=== PATIENT | female | born 1995 | race Caucasian/White ===

== ENCOUNTER 2022-08-09 21:16 | Emergency (ER) | payer OTHER, SELFPAY ==
[2022-08-09 21:24] VITALS: BP 132/96; PULSE 102; RESP 20; TEMP 36.7; O2SAT 100
--- NOTE | 2022-08-09 21:30 | ED.DENTAL ---
HPI - Dental/Oral General Chief complaint: Dental/Oral Stated complaint: mouth pain; swelling on roof of mouth Time Seen by Provider: 08/09/22 21:17 History of Present Illness HPI Narrative: This is a 27-year-old female with prior history of dental abscess who presents to the emergency department with left upper tooth pain. She rates the pain 1 out of 10 without radiation. It is controlled by ibuprofen. She denies headaches, difficulty breathing, difficulty, weakness/numbness, or change/loss of vision/hearing. She states she has been examined by a dentist and plans to follow-up next week. Teeth map: 1. Related Data Allergies Allergy/AdvReac Type Severity Reaction Status Date / Time Penicillins Allergy Severe Anaphylaxis Verified 08/09/22 21:30 Review of Systems Review of Systems: CONSTITUTIONAL: Denies fever, chills, or sweats. EYES: Denies visual changes, redness, or discharge. ENT: Dental pain denies rhinorrhea, congestion, sore throat, or otalgia. CARDIOVASCULAR: Denies chest pain, palpitations, or edema. RESPIRATORY: Denies cough or dyspnea. GASTROINTESTINAL: Denies abdominal pain, nausea, vomiting, or diarrhea. GENITOURINARY: Denies dysuria or hematuria. SKIN: Denies rash or itching. MUSCULOSKELETAL: Denies back pain, joint pain, or myalgia. NEUROLOGIC: Denies headache, numbness, dizziness, or weakness. PSYCHIATRIC: Denies anxiety or depression. PMFSH Past Medical History Medical History Dental abscess Exam Narrative: GENERAL: Well-developed, well-nourished, and in no acute distress. HEAD: Normocephalic, atraumatic. EYES: PERRLA and EOMI. ENT: Mild erythema noted at tooth #9 with multiple dental caries and poor dentition. Small amount of swelling noted over the upper lip, just left of midline; nares clear, no rhinorrhea or epistaxis. Mucous membranes moist. Oropharynx without tonsillar hypertrophy exudate or other lesions. NECK: Supple. No adenopathy or masses. No carotid bruits or JVD CHEST: Clear to auscultation. No respiratory distress. No wheezes rales or rhonchi HEART: Regular rate and rhythm. No murmur heard. Normal peripheral pulses. ABDOMEN: Soft, nontender, nondistended, normal active bowel sounds. EXTREMITIES: Normal range of motion. No edema. SKIN: Warm, dry, no rash. NEURO: No focal deficits. Alert and oriented x3. PSYCH: Normal mood and affect. Course Course Emergency Course: 21:35 - Exam consistent with early dental abscess. I am not concerned for airway compromise. Will discharge with clindamycin and recommendations for dental follow-up. The patient seems familiar with this process. Discussed return and emergent precautions including signs/symptoms of deep space infection and airway compromise. The patient voiced understanding and is comfortable with the plan. All questions answered to her satisfaction. Vital Signs Vital signs: Vital Signs Temperature 98.1 F 08/09/22 21:24 Pulse Rate 102 H 08/09/22 21:24 Respiratory Rate 20 08/09/22 21:24 Blood Pressure 132/96 H 08/09/22 21:24 Pulse Oximetry 100 08/09/22 21:24 Temperature 98.1 F 08/09/22 21:24 Pulse Rate 102 H 08/09/22 21:24 Respiratory Rate 20 08/09/22 21:24 Blood Pressure 132/96 H 08/09/22 21:24 Pulse Oximetry 100 08/09/22 21:24 Discharge Plan Discharge Clinical Impression: Dental abscess, Toothache Patient Disposition: Home, Self-Care Condition: Stable Instructions: Antibiotic Form, Dental Abscess (ED) Additional Instructions: You were seen in the emergency department. Your exam is consistent with an early dental abscess. I recommend antibiotics and close follow-up with a dentist. If you develop difficulty breathing, persistent vomiting, weakness/numbness with severe headache, or other emergent concerns for life, limb, or eyesight, return to the emergency department. Patient Language: [place] Prescriptions: New
[2022-08-09] MEDS: CLINDAMYCIN HCL 150 MG CAP 450 MG PO (21:37)
[2022-08-09 22:06] VITALS: BP 122/82; PULSE 99; TEMP 36.9; O2SAT 100
== END 2022-08-09 22:08 | disposition home or self-care (01) ==
PROVIDERS: Emergency Provider Preventive Medicine Aerospace Medicine
DX: K04.7 Periapical abscess without sinus (principal)
CPT/HCPCS: 99283; A9270

== ENCOUNTER 2023-07-04 17:10 | Emergency (ER) | payer OTHER, SELFPAY ==
--- NOTE | 2023-07-04 17:17 | ED.DENTAL ---
HPI - Dental/Oral General Chief complaint: Dental/Oral Stated complaint: sore throat Time Seen by Provider: 07/04/23 17:16 Related Data Home Medications Medication Instructions Recorded Confirmed No Home Medications 07/04/23 07/04/23 Allergies Allergy/AdvReac Type Severity Reaction Status Date / Time Penicillins Allergy Severe Anaphylaxis Verified 07/04/23 17:18 [facility] Past Medical History Medical History Dental abscess Discharge Plan Discharge Prescriptions: No Action No Home Medications Follow-up/Referrals: Mickey Fierro M.D. [Primary Care Provider] - Stand Alone Forms: Work/School Release IP
[2023-07-04 17:18] VITALS: BP 138/90; PULSE 125; RESP 18; TEMP 36.9; O2SAT 100
[2023-07-04 17:21] VITALS: BP 138/90; PULSE 125; RESP 18; TEMP 36.9; O2SAT 100
--- NOTE | 2023-07-04 17:28 | ED.URI ---
HPI - URI/Sore Throat General Chief Complaint: Dental/Oral Stated Complaint: sore throat Time Seen by Provider: 07/04/23 17:16 Source: patient Mode of arrival: ambulatory Limitations: no limitations History of Present Illness HPI Narrative: 28 year female with a history of extensive dental caries presents to the ER with -- throat pain and swelling on the right side of the throat. The pain is worse on swallowing. No fever or chills. MD elicited complaint: sore throat Onset (ago): day(s) Consistency: constant Able to tolerate fluids by mouth: Yes Exacerbating factors: swallowing Relieving factors: nothing Associated symptoms: denies other symptoms Treatments prior to arrival: none Related Data Allergies Allergy/AdvReac Type Severity Reaction Status Date / Time Penicillins Allergy Severe Anaphylaxis Verified 07/04/23 17:18 Review of Systems Review of Systems: All systems reviewed & are unremarkable except as noted in HPI and below Constitutional: Constitutional: Reports as per HPI and Reports no additional constitutional complaints Eyes: Eyes: Reports as per HPI and Reports no additional eye complaints ENT: Reports system reviewed and no additional complaints, except as documented, Reports as per HPI and Reports sore throat Cardiovascular: Cardiovascular: Reports as per HPI and Reports no additional cardiovascular complaints Respiratory: Respiratory: Reports as per HPI and Reports no additional respiratory complaints Gastrointestinal: Gastrointestinal: Reports as per HPI and Reports no additional gastrointestinal complaints Genitourinary: Genitourinary: Reports no additional female genitourinary complaints and Reports as per HPI Musculoskeletal: Musculoskeletal: Reports no additional musculoskeletal complaints and Reports as per HPI Integumentary/Breasts: Skin/Breast: Reports system reviewed and no additional complaints, except as docu and Reports as per HPI Neurologic: Reports system reviewed and no additional complaints, except as documented and Reports as per HPI Psychiatric: Psychiatric: Reports no additional psychiatric complaints and Reports as per HPI Endocrine: Endocrine: Reports no additional endocrine complaints and Reports as per HPI Hematologic/Lymphatic: Hematologic/Lymphatic: Reports no additional hematologic/lymphatic complaints and Reports as per HPI Allergic/Immunologic: Allergic/Immunologic: Reports no additional allergic/immunologic complaints and Reports as per HPI PMF Past Medical History Medical History (Updated 07/04/23 @ 18:04 by Yoan Dewitt MD) Dental abscess Dental caries Exam Const: General: no acute distress Orientation/consciousness: patient oriented x3 Limitations: no limitations HENMT: Head: normal to inspection Ears: external ears normal Face/Nose/Sinus: Normal external nose present Face and sinus: normal facial exam Mouth: Yes Normal oral and palatal mucosa present Teeth and gingiva: abnormal tooth and associated gingiva Throat: posterior oropharynx normal ( tonsillitis with right tonsillar swelling with white exudate) Eyes: Conjunctivae: conjunctivae normal Pupils: Equal, round and reactive pupils present EOM: EOMs intact bilaterally Direct Ophthalmoscopy: no photophobia Neck: Neck: normal visual inspection and lymphadenopathy Chest: Chest palpation & inspection: normal inspection of the chest Resp: Effort & Inspection: normal respiratory effort Auscultation: clear to auscultation bilaterally Cardio: Rate: regular rate Rhythm: regular rhythm GI: GI Palp: Yes Soft to palpation Auscultation: normal bowel sounds Other: no tenderness/rigidity / rebound. : General: Yes no CVA tenderness Back/Spine/Pelvis: Back: no CVA tenderness Skin: General skin exam: normal color Rashes: no rashes Wounds: no wounds Neuro: General: patient oriented x3, moves all extremities, no meningeal signs, no focal motor deficits and CN's II-XI intact bilat
[2023-07-04 17:56] LABS: Strep Group A RT-PCR Not Detected (Negative)
[2023-07-04] MEDS: AZITHROMYCIN 250 MG TABLET 500 MG PO (18:12)
[2023-07-04 18:15] VITALS: BP 155/93; PULSE 120; RESP 18; TEMP 37.1; O2SAT 100
== END 2023-07-04 18:17 | disposition home or self-care (01) ==
PROVIDERS: Emergency Provider Internal Medicine Critical Care Medicine; PCP Family Medicine
DX: J03.90 Acute tonsillitis, unspecified (principal)
CPT/HCPCS: 87651; 99283; A9270

== ENCOUNTER 2023-09-08 10:56 | Emergency (ER) | payer OTHER, SELFPAY ==
[2023-09-08 10:56] VITALS: BP 143/98; PULSE 98; RESP 18; TEMP 36.9; O2SAT 100
--- NOTE | 2023-09-08 11:55 | ED.GENADULT ---
HPI - General Adult General Chief complaint: Dental/Oral Stated complaint: tooth pain Time Seen by Provider: 09/08/23 11:18 History of Present Illness HPI narrative: 28yo woman with severe dental caries and known right upper molar periapical abscess presents with new onset right lower jaw severe pain and swelling and firmness to her cheek and neck. No fever. No dysphagia or odynophagia. No dyspnea. Related Data Allergies Allergy/AdvReac Type Severity Reaction Status Date / Time Penicillins Allergy Severe Anaphylaxis Verified 09/08/23 10:59 Review of Systems Review of Systems: All systems reviewed & are unremarkable except as noted in HPI and below Constitutional: Constitutional: Denies chills and Denies fever(s) ENT: Denies dysphagia and Denies dizziness Cardiovascular: Cardiovascular: Denies chest pain Respiratory: Respiratory: Denies dyspnea PMFSH Past Medical History Medical History Dental abscess Dental caries Exam Const: General: healthy appearing and no acute distress Nutritional Appearance: well nourished HENMT: Other: right lower mandibular swelling; localized gingivitis present to right lower alveolar ridge; severe dental caries present. Floor of mouth is soft. No neck swelling or mass. Eyes: Conjunctivae: conjunctivae normal Neck: Other: supple Resp: Effort & Inspection: normal respiratory effort Cardio: Rate: regular rate Skin: General skin exam: normal color, no jaundice and no pallor Course Vital Signs Vital signs: Vital Signs Temperature 36.9 C 09/08/23 10:56 Pulse Rate 98 09/08/23 10:56 Respiratory Rate 18 09/08/23 10:56 Blood Pressure 143/98 H 09/08/23 10:56 Pulse Oximetry 100 09/08/23 10:56 Oxygen Delivery Room Air 09/08/23 10:56 Temperature 36.9 C 09/08/23 10:56 Pulse Rate 98 09/08/23 10:56 Respiratory Rate 18 09/08/23 10:56 Blood Pressure 143/98 H 09/08/23 10:56 Pulse Oximetry 100 09/08/23 10:56 Oxygen Delivery Room Air 09/08/23 10:56 Medical Decision Making [facility] Narrative Medical decision making narrative: odontalgia, lower jaw swelling DDx dental caries gingivitis, periapical abscess without tract, buccal cellulitis. Valentino's angina not present. Vital Signs Vital Signs: Vital Signs Temperature 36.9 C 09/08/23 10:56 Pulse Rate 98 09/08/23 10:56 Respiratory Rate 18 09/08/23 10:56 Blood Pressure 143/98 H 09/08/23 10:56 Pulse Oximetry 100 09/08/23 10:56 Oxygen Delivery Room Air 09/08/23 10:56 Temperature 36.9 C 09/08/23 10:56 Pulse Rate 98 09/08/23 10:56 Respiratory Rate 18 09/08/23 10:56 Blood Pressure 143/98 H 09/08/23 10:56 Pulse Oximetry 100 09/08/23 10:56 Oxygen Delivery Room Air 09/08/23 10:56 Discharge Plan Discharge Clinical Impression: Dental abscess, Toothache, Dental caries, Gingivitis Patient Disposition: Home, Self-Care Condition: Stable Instructions: Antibiotic Form Additional Instructions: Take the prescribed medication to clear your infection and help your pain. You can also add Acetaminophen 1000 mg every 6 hours as needed and apply ice for comfort. Rinsing/gargling with warm salt water can also help to reduce swelling and pain. Prescriptions: New clindamycin HCl 300 mg capsule 300 mg PO TID 10 Days Qty: 30 0RF ketorolac 10 mg tablet 10 mg PO Q6H PRN (Reason: moderate to severe acute pain) 5 Days Qty: 15 0RF Follow-up/Referrals: Mickey Fierro M.D. [Primary Care Provider] - Stand Alone Forms: Work/School Release IP Time of Disposition: 12:00
[2023-09-08] MEDS: ACETAMINOPHEN 500 MG TABLET 1000 MG PO (12:14)
[2023-09-08] MEDS: CLINDAMYCIN HCL 150 MG CAP 300 MG PO (12:15)
[2023-09-08] MEDS: KETOROLAC (*BKC) 60 MG/2 ML VIAL IM (12:19)
[2023-09-08 12:26] VITALS: BP 146/92; PULSE 98; RESP 18; O2SAT 100
== END 2023-09-08 12:24 | disposition home or self-care (01) ==
PROVIDERS: Emergency Provider Emergency Medicine; PCP Family Medicine
DX: K04.7 Periapical abscess without sinus (principal); K02.9 Dental caries, unspecified; K05.10 Chronic gingivitis, plaque induced
CPT/HCPCS: 96372; 99284; A9270; J1100; J1885

== ENCOUNTER 2024-04-12 18:42 | Emergency (ER) | payer OTHER, SELFPAY ==
[2024-04-12 18:42] VITALS: BP 138/91; PULSE 110; RESP 16; TEMP 36.4; O2SAT 97
--- NOTE | 2024-04-12 18:44 | ED.DENTAL ---
HPI - Dental/Oral General Chief complaint: Dental/Oral Stated complaint: DENTAL PAIN Time Seen by Provider: 04/12/24 18:44 Source: patient Mode of arrival: ambulatory Limitations: no limitations History of Present Illness HPI Narrative: Patient is a 28-year-old female with poor dentition and here with a left lower jaw abscess infection. Patient has a plan to get that repaired soon. No real pain at this time. Patient needs a work note back to work tomorrow. Onset (ago): week(s) (2) Duration: constant Severity: mild Severity scale (1-10): 1 Relieving factors: nothing Exacerbating factors: chewing, cold, heat and drinking fluids Context: history of dental caries and poor dental care Associated symptoms: gum swelling Treatment prior to arrival: none Related Data Allergies Allergy/AdvReac Type Severity Reaction Status Date / Time Penicillins Allergy Severe Anaphylaxis Verified 04/12/24 18:51 Review of Systems Review of Systems: All systems reviewed & are unremarkable except as noted in HPI and below Constitutional: Constitutional: Reports no additional constitutional complaints Eyes: Eyes: Reports no additional eye complaints ENT: Reports system reviewed and no additional complaints, except as documented Cardiovascular: Cardiovascular: Reports no additional cardiovascular complaints Respiratory: Respiratory: Reports no additional respiratory complaints Gastrointestinal: Gastrointestinal: Reports no additional gastrointestinal complaints Genitourinary: Genitourinary: Reports no additional female genitourinary complaints Musculoskeletal: Musculoskeletal: Reports no additional musculoskeletal complaints Integumentary/Breasts: Skin/Breast: Reports system reviewed and no additional complaints, except as docu Neurologic: Reports system reviewed and no additional complaints, except as documented Psychiatric: Psychiatric: Reports no additional psychiatric complaints Endocrine: Endocrine: Reports no additional endocrine complaints Hematologic/Lymphatic: Hematologic/Lymphatic: Reports no additional hematologic/lymphatic complaints Allergic/Immunologic: Allergic/Immunologic: Reports no additional allergic/immunologic complaints PMFSH Past Medical History Medical History Dental abscess Dental caries Exam Const: General: healthy appearing Nutritional Appearance: well nourished Orientation/consciousness: patient oriented x3 HENMT: Head: normal to inspection Ears: external ears normal Face/Nose/Sinus: Normal external nose present Other: Left lower jaw gums are red and inflamed without a definite pocket of abscess to drain at this time; poor dentition throughout the oral cavity Eyes: Conjunctivae: conjunctivae normal Pupils: Equal, round and reactive pupils present EOM: EOMs intact bilaterally Neck: Neck: normal visual inspection Chest: Chest palpation & inspection: normal inspection of the chest Resp: Effort & Inspection: normal respiratory effort and not labored Auscultation: clear to auscultation bilaterally and no crackles Cardio: Rate: regular rate Rhythm: regular rhythm Heart sounds: no murmurs GI: Auscultation: normal bowel sounds : General: Yes bladder normal to palpation Back/Spine/Pelvis: Back: no CVA tenderness Skin: General skin exam: normal color Rashes: no rashes Wounds: no wounds Neuro: General: patient oriented x3 Cranial nerves: Yes Nystagmus not present Speech: normal speech Extrem: General: normal to inspection Psych: Mental Status: mental status grossly normal Affect: normal affect Attitude: cooperative MDM - Dental/Oral MDM Narrative Medical decision making narrative: patient is a 28-year-old female with poor dentition and left lower jaw gum line infection. She has a plan to see a dentist and get this repaired. she needs a note for work to go back tomorrow. We will start antibiotics also. Clindamyci
== END 2024-04-12 19:14 | disposition home or self-care (01) ==
LOC: CHSED 19:17
PROVIDERS: Emergency Provider Emergency Medicine; PCP Family Medicine
DX: R68.84 Jaw pain (principal)
CPT/HCPCS: 99283

== ENCOUNTER 2024-05-23 11:46 | Outpatient (CLI) | payer OTHER, SELFPAY | END 2024-05-23 11:47 | disposition home or self-care (01) | PROVIDERS: PCP Family Medicine | DX: O20.9 Hemorrhage in early pregnancy, unspecified (principal) | CPT/HCPCS: 36415; 84702 ==

== ENCOUNTER 2024-06-10 21:24 | Emergency (ER) | payer OTHER, SELFPAY ==
--- NOTE | ~2024-06-10 | CT_ITS ---
CT abdomen pelvis wo con Ordering provider: Cheikh Lutz MD History: 29 years Female with . s/p Ab 1week bleeding . Comparison: CT abdomen pelvis wo con Ordering provider: Cheikh Lutz MD History: 29 years Female with . s/p Ab 1week bleeding . Comparison: None. Technique: CT abdomen and pelvis without IV and without oral contrast. Automated exposure control and iterative reconstruction technique were employed. The dose-length product was 284.88 mGy-cm. Findings: VISUALIZED LOWER CHEST: Normal. UPPER ABDOMINAL ORGANS: Liver: Hepatomegaly. Gallbladder: Normal. Spleen: Normal. Stomach/duodenum: Normal. Pancreas: Normal. Adrenals: Normal. Kidneys: Tiny stone in the right kidney upper pole. Tiny stone in the left kidney midpole.. No hydron ephrotic changes PELVIC ORGANS: The bladder is underfilled.. Uterus: Normal. BOWEL AND MESENTERY: Colon: No evidence of diverticulitis. No evidence of appendicitis. Small Bowel: Normal. No obstruction. Peritoneum/mesentery: No free air or free fluid. No mesenteric lymphadenopathy. RETROPERITONEUM: Normal aorta. Prominent IVC. No retroperitoneal lymphadenopathy. MUSCULOSKELETAL: Superficial soft tissues: The superficial soft tissues are normal. Bones: Normal spine. IMPRESSION: 1. Hepatomegaly. 2. Bilateral tiny kidney stones. 3. No evidence of appendicitis, diverticulitis or intestinal obstruction. Reviewed, dictated and finalized at location A.
[2024-06-10 21:28] VITALS: BP 127/97; PULSE 129; RESP 18; TEMP 36.5; O2SAT 100
--- NOTE | 2024-06-10 21:30 | PC.NURSE ---
Pt's blood pressure elevated. ERP notified. No new orders. Pt states that she has a hx of high blood pressure but has not taken meds for 6 years.
--- NOTE | 2024-06-10 21:48 | ED.ABDPAIN ---
HPI - Abdominal Pain General Chief Complaint: Abdominal Pain Stated Complaint: Post vaginal bleeding Time Seen by Provider: 06/10/24 21:28 Source: patient Mode of arrival: ambulatory Limitations: no limitations History of Present Illness HPI narrative: patient is a 29-year-old female with a recent 1 week ago vacuum assisted elective procedure. She has been having roughly a normal menstrual cycle for the past week and some clots and now this evening had 5 larger blood clots and came to the ER for evaluation. She is still having a light flow at this time. Slight lower pelvic pains from time to time but otherwise no complaints. MD elicited complaint: abdominal pain ( Lower abdomen/ pelvis region) Pertinent past history: other ( elective vacuum assisted 1 week ago) Onset (ago): hour(s) (3) Pain Consistency: intermittent Location: suprapubic Severity: mild Pain scale (0-10): 1 Quality: cramping Radiation: none Migration to: no migration Exacerbating factors: nothing Relieving factors: nothing Context: confirms other ( 1 week ago elective ) Associated symptoms: denies other symptoms Related Data Home Medications Medication Instructions Recorded Confirmed No Home Medications 06/10/24 06/10/24 Allergies Allergy/AdvReac Type Severity Reaction Status Date / Time Penicillins Allergy Severe Anaphylaxis Verified 06/10/24 21:41 Review of Systems Review of Systems: All systems reviewed & are unremarkable except as noted in HPI and below Constitutional: Constitutional: Reports no additional constitutional complaints Eyes: Eyes: Reports no additional eye complaints ENT: Reports system reviewed and no additional complaints, except as documented Cardiovascular: Cardiovascular: Reports no additional cardiovascular complaints Respiratory: Respiratory: Reports no additional respiratory complaints Gastrointestinal: Gastrointestinal: Reports no additional gastrointestinal complaints Genitourinary: Genitourinary: Reports no additional female genitourinary complaints Musculoskeletal: Musculoskeletal: Reports no additional musculoskeletal complaints Integumentary/Breasts: Skin/Breast: Reports system reviewed and no additional complaints, except as docu Neurologic: Reports system reviewed and no additional complaints, except as documented Psychiatric: Psychiatric: Reports no additional psychiatric complaints Endocrine: Endocrine: Reports no additional endocrine complaints Hematologic/Lymphatic: Hematologic/Lymphatic: Reports no additional hematologic/lymphatic complaints Allergic/Immunologic: Allergic/Immunologic: Reports no additional allergic/immunologic complaints PMFSH Past Medical History Medical History Dental abscess Dental caries Exam Const: General: healthy appearing Nutritional Appearance: well nourished Orientation/consciousness: patient oriented x3 HENMT: Head: normal to inspection Ears: external ears normal Face/Nose/Sinus: Normal external nose present Eyes: Conjunctivae: conjunctivae normal Pupils: Equal, round and reactive pupils present EOM: EOMs intact bilaterally Neck: Neck: normal visual inspection Chest: Chest palpation & inspection: normal inspection of the chest Resp: Effort & Inspection: normal respiratory effort and not labored Auscultation: clear to auscultation bilaterally and no crackles Cardio: Rate: regular rate Rhythm: regular rhythm Heart sounds: no murmurs GI: Inspection: non-distended GI Palp: Yes Soft to palpation and No Tenderness to palpation present (GI) Auscultation: normal bowel sounds : General: Yes bladder normal to palpation Back/Spine/Pelvis: Back: no CVA tenderness Skin: General skin exam: normal color Rashes: no rashes Wounds: no wounds Neuro: General: patient oriented x3 Cranial nerves: Yes Nystagmus not present Speech: normal speech Extrem: General: normal to inspection Psych: Mental Status: mental status grossly normal Affect: normal affect Attitude: cooperative Course Vital Signs Vital signs: Vital Signs Oxygen Delivery Room Air 06/10/24 21:24 Temperature 36.5 C 06/10/24 22:59 Pulse Rate 91 06/10/24 22:59 Respiratory Rate 16 06/10/24 22:59 Blood Pressure 116/80 06/10/24 22:59 Pulse Oximetry 100 06/10/24 22:59 Oxygen Delivery Room Air 06/10/24 22:59 MDM - Abdominal Pain MDM Narrative Medical decision making narrative: patient is a 29-year-old female status post 1 week elective and here with multiple blood clots this evening. She was worried about her health and came in for evaluation. We will do a workup at this time. I did explain that we do not have ultrasound at this time and if I find any concerning elements to her workup we will need to transfer her for ultrasound of the pelvis. Workup was essentially negative for acute problems and process. We will go ahead and discharge the patient at this time with safety. Lab Data Attestation: I reviewed the patient's lab results. 06/10/24 22:08 06/10/24 22:08 Labs: Lab Results 06/10/24 Range/Units 22:08 WBC 7.7 (4.8-10.8) K/mm3 RBC 3.89 L (4.20-5.40) M/mm3 Hgb 12.5 (12.0-15.0) g/dL Hct 37.3 (35.0-49.0) % MCV 95.9 (78.0-102.0) fL MCH 32.1 H (27.0-31.0) pg MCHC 33.5 (32-36) g/dL RDW 12.3 (11.6-14.4) % Plt Count 349 (150-420) K/mm3 MPV 9.9 (9.2-11.8) fl Immature Gran % (Auto) 0.4 H (0.0-0.0) % Neut % (Auto) 63.9 (50.0-70.0) % Lymph % (Auto) 26.0 (18.0-42.0) % [facility] % (Auto) 7.2 (2.0-11.0) % Eos % (Auto) 1.6 (1.0-6.0) % Baso % (Auto) 0.9 (0.0-1.0) % Lymph # (Auto) 2.00 (1.10-4.50) K/mm3 [facility] # (Auto) 0.55 (0.10-0.90) K/mm3 Eos # (Auto) 0.12 (0.02-0.50) K/mm3 Baso # (Auto) 0.07 (0.00-0.10) K/mm3 Abs Immat Gran (auto) 0.03 H (0.00-0.00) K/mm3 Absolute Neuts (auto) 4.91 (1.70-7.20) K/mm3 Absolute Nucleated RBC 0.00 (0.00-0.00) K/mm3 Nucleated RBC % 0.0 (0-0.0) % PT 10.9 (9.50-12.1) Seconds INR 1.0 APTT 29.4 (23.9-30.70) Sec Sodium 142 (136-145) mmol/L Potassium 3.4 L (3.5-5.1) mmol/L Chloride 105 (98-108) mmol/L Carbon Dioxide 29 (21-32) mmol/L Anion Gap 8 (4-12) mmol/L BUN 9 (7-18) mg/dL Creatinine 0.70 (0.55-1.02) mg/dL Estim Creat Clear Calc 98 ml/min Estimated GFR > 60 (59 - ) Glucose 85 (70-99) mg/dL Calculated Osmolality 291 (285-295) mOsm/kg Calcium 8.7 (8.5-10.1) mg/dL Total Bilirubin 0.3 (0.00-1.00) mg/dL AST 13 L (15-37) U/L ALT 20 (14-59) U/L Alkaline Phosphatase 79 (46-116) U/L Total Protein 7.1 (6.4-8.2) g/dL Albumin 3.4 (3.4-5.0) g/dL Beta HCG, Quant 1526.00 H (0-6) mIU/mL Blood Type O Positive Imaging Data Attestation: I personally reviewed and interpreted this imaging study as follows: Radiologist's impression: ITS Impressions Abdomen/Pelvis CT 06/10/24 22:15 IMPRESSION: 1. Hepatomegaly. 2. Bilateral tiny kidney stones. 3. No evidence of appendicitis, diverticulitis or intestinal obstruction. Discharge Plan Discharge Clinical Impression: with blood clot Patient Disposition: Home, Self-Care Condition: Stable Instructions: Pelvic Rest (ED) Additional Instructions: Please follow-up with the primary doctor in the next week. Come back to the emergency room with continued worse bleeding or clots. If this continues, you will need an ultrasound of the pelvic region. Also you will need a repeat hCG level to make sure that number has not gone up and resolved. Prescriptions: No Action No Home Medications Follow-up/Referrals: Mickey Fierro M.D. [Primary Care Provider] - Time of Disposition: 22:48
[2024-06-10 22:11] LABS: Basophils Absolute Auto 0.07 K/mm3 (0.00-0.10); Basophils Percent Auto 0.9 % (0.0-1.0); Eosinophils Absolute Auto 0.12 K/mm3 (0.02-0.50); Eosinophils Percent Auto 1.6 % (1.0-6.0); Hematocrit 37.3 % (35.0-49.0); Hemoglobin 12.5 g/dL (12.0-15.0); Immature Granulocyte Absolute 0.03 K/mm3 (0.00-0.00); Immature Granulocyte Percent A 0.4 % (0.0-0.0); Mean Corpuscular HGB Conc 33.5 g/dL (32-36); Mean Corpuscular Hemoglobin 32.1 pg (27.0-31.0); Mean Corpuscular Volume 95.9 fL (78.0-102.0); Mean Platelet Volume 9.9 fl (9.2-11.8); Monocytes Absolute Auto 0.55 K/mm3 (0.10-0.90); Monocytes Percent Auto 7.2 % (2.0-11.0); Neutrophils Absolute Auto 4.91 K/mm3 (1.70-7.20); Neutrophils Percent Auto 63.9 % (50.0-70.0); Platelet Count Result 349 K/mm3 (150-420); Red Blood Count 3.89 M/mm3 (4.20-5.40); Red Cell Distribution Width 12.3 % (11.6-14.4); White Blood Count 7.7 K/mm3 (4.8-10.8)
[2024-06-10 22:25] LABS: Partial Thromboplastin Time 29.4 Sec (23.9-30.70); Prothrombin Time 10.9 Seconds (9.50-12.1)
[2024-06-10 22:26] LABS: Alanine Aminotransferase 20 U/L (14-59); Albumin Level 3.4 g/dL (3.4-5.0); Alkaline Phosphatase 79 U/L (46-116); Anion Gap 8 mmol/L (4-12); Aspartate Amino Transferase 13 U/L (15-37); Bilirubin,Total 0.3 mg/dL (0.00-1.00); Blood Urea Nitrogen 9 mg/dL (7-18); Calcium 8.7 mg/dL (8.5-10.1); Carbon Dioxide 29 mmol/L (21-32); Chloride 105 mmol/L (98-108); Estimated CRCL calculation 98 ml/min; Estimated Glomerular Filt Rate > 60; Glucose 85 mg/dL (70-99); Osmolality Calculated 291 mOsm/kg (285-295); Potassium 3.4 mmol/L (3.5-5.1); Sodium 142 mmol/L (136-145); Total Protein 7.1 g/dL (6.4-8.2)
[2024-06-10 22:59] VITALS: BP 116/80; PULSE 91; RESP 16; TEMP 36.5; O2SAT 100
== END 2024-06-10 23:09 | disposition home or self-care (01) ==
PROVIDERS: Emergency Provider Emergency Medicine; PCP Family Medicine
DX: O04.80 (Induced) termination of pregnancy with unspecified complications (principal)
CPT/HCPCS: 36415; 74176; 80053; 84702; 85025; 85610; 85730; 86900; 86901; 99284

== ENCOUNTER 2024-06-19 14:30 | Emergency (ER) | payer OTHER, SELFPAY ==
[2024-06-19 14:30] VITALS: BP 140/92; PULSE 87; RESP 20; TEMP 36.9; O2SAT 100
--- NOTE | 2024-06-19 14:32 | ED_ITS ---
HPI - Skin/Abscess/Foreign Bdy General Chief complaint: Skin/Abscess/Foreign Body Stated complaint: chemical reaction to skin Source: patient and family Mode of arrival: ambulatory Limitations: no limitations History of Present Illness HPI narrative: Patient is a 29-year-old female with a left upper extremity wrist area and hand area to include left forearm chemical burn / dermatitis from work related product. she was cleaning dishes where with a product of sterilization without gloves and further sustained a left hand and wrist burn. Patient claims very painful site. This happened in the past hour. MD complaint: other ( Burn of the left hand and wrist ( dermatitis as well)) Onset (ago): hour(s) (1) Tetanus up to date: no Location: LUE ( left hand and left wrist with extension to the left forearm) and L hand Severity: moderate Severity scale (1-10): 4 Quality: burning, sharp and constant Pain Consistency: constant Relieving factors: immobilization and topical medication Exacerbating factors: palpation and movement Context: other ( work related chemical got onto her left hand and wrist and forearm while cleaning dishes) Associated symptoms: denies other symptoms Treatments prior to arrival: OTC topical medication Related Data Allergies Allergy/AdvReac Type Severity Reaction Status Date / Time Penicillins Allergy Severe Anaphylaxis Verified 06/10/24 21:41 Review of Systems Review of Systems: All systems reviewed & are unremarkable except as noted in HPI and below Constitutional: Constitutional: Reports no additional constitutional complaints Eyes: Eyes: Reports no additional eye complaints ENT: Reports system reviewed and no additional complaints, except as documented Cardiovascular: Cardiovascular: Reports no additional cardiovascular com plaints Respiratory: Respiratory: Reports no additional respiratory complaints Gastrointestinal: Gastrointestinal: Reports no additional gastrointestinal complaints Genitourinary: Genitourinary: Reports no additional female genitourinary complaints Musculoskeletal: Musculoskeletal: Reports no additional musculoskeletal complaints Integumentary/Breasts: Skin/Breast: Reports system reviewed and no additional complaints, except as docu Neurologic: Reports system reviewed and no additional complaints, except as documented Psychiatric: Psychiatric: Reports no additional psychiatric complaints Endocrine: Endocrine: Reports no additional endocrine complaints Hematologic/Lymphatic: Hematologic/Lymphatic: Reports no additional hematologi c/lymphatic complaints Allergic/Immunologic: Allergic/Immunologic: Reports no additional allergic/immunologic complaints PMFSH Past Medical History Medical History Dental abscess Dental caries Exam Const: General: healthy appearing Nutritional Appearance: well nourished Orientation/consciousness: patient oriented x3 HENMT: Head: normal to inspection Ears: external ears normal Face/Nose/Sinus: Normal external nose present Eyes: Conjunctivae: conjunctivae normal Pupils: Equal, round and reactive pupils present EOM: EOMs intact bilaterally Neck: Neck: normal visual inspection Chest: Chest palpation & inspection: normal inspection of the chest Resp: Effort & Inspection: normal respiratory effort and not labored Auscultation: clear to auscultation bilaterally and no crackles Cardio: Rate: regular rate Rhythm: regular rhythm Heart sounds: no murmurs GI: Inspection: non-distended GI Palp: Yes Soft to palpation and No Tenderness to palpation present (GI) Auscultation: normal bowel sounds : General: Yes bladder normal to palpation Back/Spine/Pelvis: Back: no CVA tenderness Skin: General skin exam: No normal color Rashes: rash noted Wounds: wound noted Other: left wrist hand and forearm have erythema base with 1st degree burn and flexor surface has an elongated area of second-degree burn with early blistering; TBSA is 1% or less Neuro: General: patient oriented x3 Cranial nerves: Yes Nystagmus not present Speech: normal speech Gait exam (Neuro): Normal gait present Extrem: General: normal to inspection Psych: Mental Status: mental status grossly normal Affect: normal affect Attitude: cooperative Course Vital Signs Vital signs: Vital Signs Temperature 36.9 C 06/19/24 14:30 Pulse Rate 87 06/19/24 14:30 Respiratory Rate 20 06/19/24 14:30 Blood Pressure 140/92 H 06/19/24 14:30 Pulse Oximetry 100 06/19/24 14:30 Oxygen Delivery Room Air 06/19/24 14:30 Temperature 36.9 C 06/19/24 14:30 Pulse Rate 87 06/19/24 14:30 Respiratory Rate 20 06/19/24 14:30 Blood Pressure 140/92 H 06/19/24 14:30 Pulse Oximetry 100 06/19/24 14:30 Oxygen Delivery Room Air 06/19/24 14:30 MDM - Skin/Abscess/Foreign Bdy MDM Narrative Medical decision making narrative: patient is a 29-year-old female with a left upper extremity burn and dermatitis. She was exposed to work related chemicals. We will treat accordingly. We will give her Silvadene topically, antibiotic and steroid. She will need a tetanus booster. Discharge Plan Discharge Clinical Impression: Chemical burn Contact dermatitis Qualifiers: Contact dermatitis type: allergic Contact dermatitis trigger: other chemical product Qualified Code(s): L23.5 - Allergic contact dermatitis due to other chemical products Patient Disposition: Home, Self-Care Condition: Stable Instructions: Antibiotic Form, Contact Dermatitis (DC), Second-Degree Burn (ED) Additional Instructions: Patient must use gloves when using chemicals at work. Preferably gloves that go up to her elbow. Prescriptions: New silver sulfadiazine [Silvadene] 1 % cream 1 applic topical BID PRN (Reason: wound healing) Qty: 50 0RF Rx Instructions: apply a 1.5 mm thickness clindamycin HCl 300 mg capsule 300 mg PO TID 7 Days Qty: 21 0RF hydrocodone-acetaminophen 10-325 mg tablet 1 tablet PO Q8H PRN (Reason: pain) Qty: 20 0RF Follow-up/Referrals: Mickey Fierro M.D. [Primary Care Provider] - Time of Disposition: 14:51
[2024-06-19] MEDS: predniSONE 20 MG TABLET 40 MG PO (14:52)
[2024-06-19] MEDS: CLINDAMYCIN HCL 150 MG CAP 300 MG PO (14:52)
[2024-06-19] MEDS: HYDROcodone/acetaminophen (*CRX) 10-325 MG TABLET 1 TAB PO (14:52)
[2024-06-19] MEDS: TETANUS,DIPHTHERIA,AC PERTUSSIS ADULT 0.5 ML (ADACEL) IM (14:53)
[2024-06-19] MEDS: SILVER SULFADIAZINE 1% CR 50 GM JAR (*BKC) 1 APPLIC TOPICAL (14:54)
== END 2024-06-19 15:24 | disposition home or self-care (01) ==
LOC: CHSED 15:14
PROVIDERS: Emergency Provider Emergency Medicine; PCP Family Medicine
DX: L23.5 Allergic contact dermatitis due to other chemical products (principal); T65.91XA Toxic effect of unspecified substance, accidental (unintentional), initial encounter; T23.59 Corrosion of first degree of multiple sites of wrist and hand; T32.0 Corrosions involving less than 10% of body surface; Z23 Encounter for immunization; Y99.0 Civilian activity done for income or pay
CPT/HCPCS: 90471; 90715; 99283; A9270; J7512

== ENCOUNTER 2024-10-25 09:08 | Emergency (ER) | payer OTHER, SELFPAY ==
--- NOTE | ~2024-10-25 | XR_ITS ---
EXAMINATION: XR ankle LT min 3V DATE: 10/25/2024 10:46 INDICATION: Left ankle injury and swelling. TECHNIQUE: 4 views of left ankle were obtained. COMPARISON: None. FINDINGS: Alignment is normal. No fracture. Joint spaces are normal. There is ankle soft tissue swell ing. IMPRESSION: 1. No fracture. Reviewed, dictated and finalized at location B. IMPRESSION: 1. No fracture.
--- NOTE | ~2024-10-25 | XR_ITS ---
EXAMINATION: XR hip LT 2V w AP pelvis DATE: 10/25/2024 10:46 INDICATION: Left hip injury. TECHNIQUE: An anteroposterior view of the pelvis and 2 views of left hip were obtained. COMPARISON: None. FINDINGS: Alignment is normal. No fracture. Joint spaces are normal. IMPRESSION: 1. No fracture. Reviewed, dictated and finalized at location B. IMPRESSION: 1. No fracture.
[2024-10-25 09:08] VITALS: BP 116/76; PULSE 80; RESP 18; TEMP 36.7; O2SAT 100
[2024-10-25 10:13] LABS: Pregnancy On Board Control Positive; Urine Pregnancy Test Negative
--- NOTE | 2024-10-25 10:24 | ED.LOWEXIN ---
HPI - Extremity Injury (Lower) General Chief Complaint: Extremity Injury, Lower Stated Complaint: LEG SWELLING Time Seen by Provider: 10/25/24 10:01 Source: patient Mode of arrival: ambulatory Limitations: no limitations History of Present Illness HPI Narrative: PATIENT LOST HER BALANCE AND FELL DOWN 10 STEPS 4 DAYS AGO, DEVELOPED PAIN AND SWELLING AND BRUISES OF THE LEFT LOWER EXTREMITY MAINLY AT THE LATERAL SIDE OF THE LEFT THIGH AND MEDIAL SIDE OF THE LOWER LEG 1 DAY LATER. CURRENTLY COMPLAINING OF LEFT ANKLE AND LEFT PAIN. PATIENT DENIES OTHER INJURIES. Related Data Home Medications ?Medication ?Instructions ?Recorded ?Confirmed ?Last Taken ?Type No Home Medications 09/12/24 09/12/24 Unknown History Allergies Allergy/AdvReac Type Severity Reaction Status Date / Time Penicillins Allergy Severe Unknown Verified 10/25/24 09:18 Review of Systems Review of Systems: All systems reviewed & are unremarkable except as noted in HPI and below PMFSH Past Medical History Medical History Dental caries Dental abscess Exam Narrative: GENERAL APPEARANCE: WELL-DEVELOPED, WELL-NOURISHED SKIN: NORMAL COLOR HEAD: NORMOCEPHALIC, NONTRAUMATIC EYES: CLEAR CONJUNCTIVA ENT: OROPHARYNX NORMAL, EARS NORMAL, NOSE NORMAL NECK: SUPPLE, NONTENDER CHEST AND RESPIRATORY: AIRWAY PATENT, NO RESPIRATORY DISTRESS, NO ACCESSORY MUSCLE USE HEART: REGULAR RATE/RHYTHM ABDOMEN: SOFT, NONTENDER, NO ORGANOMEGALY, QUIET BOWEL SOUNDS VASCULAR: NORMAL PERIPHERAL PULSES, NORMAL CAPILLARY REFILL. MUSCULOSKELETAL: LEFT LOWER EXTREMITY EXAM SHOWED DIFFUSE BRUISES AND TENDERNESS LEFT THIGH LATERALLY, LEFT LOWER LEG MEDIALLY, SLIGHT DIFFUSE TENDERNESS LEFT HIP, NO BRUISES, GOOD RANGE OF MOTION, LEFT ANKLE SHOWED DIFFUSE SWELLING, NO DEFORMITY, SLIGHT LIMITED RANGE OF MOTION NEUROLOGIC: ALERT AND ORIENTED ?3, CREDIT INVESTIGATOR IS NORMAL TESTED, NO GROSS MOTOR DEFICIT Course Vital Signs Vital signs: Vital Signs Temperature 36.7 C 10/25/24 09:08 Pulse Rate 80 10/25/24 09:08 Respiratory Rate 18 10/25/24 09:08 Blood Pressure 116/76 10/25/24 09:08 Pulse Oximetry 100 10/25/24 09:08 Oxygen Delivery Room Air 10/25/24 09:08 Temperature 36.7 C 10/25/24 09:08 Pulse Rate 80 10/25/24 09:08 Respiratory Rate 18 10/25/24 09:08 Blood Pressure 116/76 10/25/24 09:08 Pulse Oximetry 100 10/25/24 09:08 Oxygen Delivery Room Air 10/25/24 09:08 MDM - Extremity Injury (Lower) MDM Narrative Medical decision making narrative: PATIENT WENT DOWN 10 STEPS, COMPLAINING LEFT LOWER EXTREMITY PAIN AND SWELLING PHYSICAL EXAMINATION SHOWING BRUISES OF THE LEFT THIGH AND LEFT LOWER LEG X-RAY OF THE LEFT HIP AND LEFT ANKLE SHOWED NO ACUTE ABNORMALITIES DISCHARGED ON TYLENOL, IBUPROFEN, KEEP LEG ELEVATED Differential Diagnosis Differential diagnosis: Likely other ( ABOVE) Lab Data Labs: Lab Results 10/25/24 Range/Units 10:07 Urine Test Negative Imaging Data Radiologist's impression: X-RAY OF THE LEFT ANKLE SHOWED NO ACUTE ABNORMALITIES X-RAY OF THE LEFT HIP AND PELVIS SHOWED NO ACUTE ABNORMALITIES Critical Care Time Critical Care Time Critical Care Time: No Discharge Plan Discharge Clinical Impression: Contusion of leg, left, multiple sites Patient Disposition: Home, Self-Care Condition: Stable Instructions: Contusion in Adults (ED) Additional Instructions: RETURN IF SYMPTOMS ARE WORSENING , CALL YOUR FAMILY PHYSICIAN FOR APPOINTMENT, TAKE TYLENOL, IBUPROFEN NEEDED FOR ACHES AND PAIN, CONTINUE HOME MEDICATIONS. KEEP LEG ELEVATED Patient Language: Persian Prescriptions: No Action No Home Medications Follow-up/Referrals: Sri,Bhupendra Byers MD [Primary Care Provider] - Stand Alone Forms: Work/School Release IP
[2024-10-25 11:08] VITALS: BP 124/84; PULSE 74; RESP 18; O2SAT 97
== END 2024-10-25 11:08 | disposition home or self-care (01) ==
PROVIDERS: Emergency Provider Emergency Medicine; PCP Family Medicine
DX: S80.12XA Contusion of left lower leg, initial encounter (principal); W10.9XXA Fall (on) (from) unspecified stairs and steps, initial encounter
CPT/HCPCS: 73502; 73610; 81025; 99284

== ENCOUNTER 2024-11-10 23:02 | Emergency (ER) | payer OTHER, SELFPAY ==
--- NOTE | ~2024-11-10 | XR_ITS ---
XR ankle RT min 3V Ordering provider: Sandy Blas PA-C History: . laceration . Comparison: None. FINDINGS: BONES: No acute fracture or dislocation. JOINT SPACES: Normal. SOFT TISSUES: Normal. IMPRESSION: No acute osseous abnormality of the right ankle. Reviewed, dictated and finalized at location A.
[2024-11-10 23:09] VITALS: BP 128/94; PULSE 108; RESP 17; TEMP 36.8; O2SAT 100
[2024-11-10] MEDS: MORPHINE SULFATE (*CRX) 4 MG/ML INJ (23:19)
[2024-11-10 23:43] LABS: Anion Gap 12 mmol/L (4-12); Blood Urea Nitrogen 12 mg/dL (7-17); Calcium 9.3 mg/dL (8.4-10.2); Carbon Dioxide 26 mmol/L (22-30); Chloride 102 mmol/L (98-107); Estimated CRCL calculation 93 ml/min; Estimated Glomerular Filt Rate > 60; Glucose 97 mg/dL (65-110); Potassium 3.8 mmol/L (3.4-5.0); Sodium 140 mmol/L (137-145)
--- NOTE | 2024-11-10 23:55 | ED.WOUNDLAC ---
HPI - Wound/Laceration General Chief Complaint: Wound/Laceration Stated Complaint: laceration to ankle Time Seen by Provider: 11/10/24 23:03 History of Present Illness HPI narrative: 29-year-old female presents to the emergency department for a laceration to her right foot/ankle that occurred an hour prior to arrival. 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 Bleeding controlled. Last Tdap up-to-date as of last year per patient. No other injuries. Patient reporting difficulty with dorsiflexion and extension of toes. Related Data Home Medications ?Medication ?Instructions ?Recorded ?Confirmed ?Last Taken ?Type No Home Medications 09/12/24 09/12/24 Unknown History Allergies Allergy/AdvReac Type Severity Reaction Status Date / Time Penicillins Allergy Severe Unknown Verified 11/10/24 23:03 Review of Systems Review of Systems: All systems reviewed & are unremarkable except as noted in HPI and below PMFSH Past Medical History Medical History Dental caries Dental abscess Exam Narrative: GENERAL: Well-appearing, well-nourished, and in no acute distress. HEAD: Normocephalic, atraumatic. EYES: EOMI. ENT: Nares clear, no rhinorrhea or epistaxis. Mucous membranes moist. NECK: Supple. CHEST: Clear to auscultation. No respiratory distress. HEART: Regular rate and rhythm. No murmur heard. Normal peripheral pulses. ABDOMEN: Soft, nontender, nondistended, normal active bowel sounds. EXTREMITIES: RLE: 2cm x 6.5 cm deep laceration to the anterior ankle / proximal dorsum of the foot with exposed severed tendon(s). Patient is able to flex toes but is unable to extend toes. She is able to plantar flex but unable to dorsiflex the ankle. DP pulses 2+. Sensation intact. Bleeding controlled. No exposed bone. Sensation intact SKIN: Warm, dry, no rash. NEURO: No focal deficits. Alert and oriented x3 Course Vital Signs Vital signs: Vital Signs Temperature 98.2 F 11/10/24 23:09 Pulse Rate 108 H 11/10/24 23:09 Respiratory Rate 17 11/10/24 23:09 Blood Pressure 128/94 H 11/10/24 23:09 Pulse Oximetry 100 11/10/24 23:09 Oxygen Delivery Room Air 11/10/24 23:09 Temperature 98.2 F 11/10/24 23:09 Pulse Rate 93 11/11/24 01:28 Respiratory Rate 15 11/11/24 01:28 Blood Pressure 116/67 11/11/24 01:28 Pulse Oximetry 100 11/11/24 01:28 Oxygen Delivery Room Air 11/10/24 23:09 MDM - Wound/Laceration MDM Narrative Medical decision making narrative: 29-year-old female presents emergency department for a laceration to the anterior aspect of the right ankle/dorsal foot that occurred prior to arrival. See HPI for further history. Vitals with mild tachycardia 108 otherwise unremarkable. Exam is significant for the above. Patient does have evidence of severed exposed tendons with inability to extend her toes and inability to dorsiflex her ankle. She is neurovascularly intact. Bleeding is controlled. Tdap is reportedly up-to-date. X-ray shows no acute osseous findings. Patient was given morphine for pain with improvement. Laceration irrigated extensively with normal saline, dressing applied. A dose of cefazolin provided. Given exam findings, I am concerned for injury to the extensor hallucis longus and/or the tibialis anterior and/or the extensor digitorum longus. I discussed findings with orthopedist on-call, Dr. Russo, who recommends consult to Podiatry given he does not typically repair tendons. I discussed podiatry is not on-call and therefore do not feel comfortable consulting them at night. I discussed with our general surgeon, Dr. Sanchez, who also does not perform tendon repairs. Plan to transfer to higher level of care. Discussed case with [facility] spinning frame cleaner, Dr. Kira Enriquez, who agrees to consult. Plans for I&D with washout and reapproximation of tendons. Accepting physician, [facility] hospitalist, Dr. Ku. Pt made NPO. Hospitalist is requesting to broaden antibiotics, advises data on Zosyn or Unasyn. Advised patient has a penicillin allergy. Hospitalist recommending cefepime and Flagyl. Pt made NPO with plans to go to OR today. Lab Data 11/10/24 23:27 11/10/24 23:27 Labs: Lab Results 11/10/24 Range/Units 23:27 WBC 14.7 H (4.5-10.0) K/mm3 RBC 4.49 (4.2-5.4) M/mm3 Hgb 14.0 (12.0-15.0) g/dL Hct 43.6 (37.0-47.0) % MCV 97.1 (80-100) fl MCH 31.2 (26-34) pg MCHC 32.1 (32-36) g/dl RDW 13.0 (11.5-14.5) % Plt Count 354 (150-375) k/mm3 MPV 9.9 (7.4-10.4) fl Immature Gran % (Auto) 1.4 H (0-0.5) % Neut % (Auto) 80.2 H (45.5-73.1) % Lymph % (Auto) 9.2 L (18.3-44.2) % Villalba % (Auto) 8.0 (2.6-8.5) % Eos % (Auto) 0.5 (0-4.4) % Baso % (Auto) 0.7 (0.2-1.2) % Lymph # (Auto) 1.35 (0.9-3.2) K/mm3 Villalba # (Auto) 1.2 H (0.1-0.6) K/mm3 Eos # (Auto) 0.1 (0-0.3) K/mm3 Baso # (Auto) 0.1 (0.0-0.1) K/mm3 Abs Immat Gran (auto) 0.21 H (0.00-0.031) K/mm3 Absolute Neuts (auto) 11.8 H (1.3-6.7) K/mm3 Absolute Nucleated RBC 0.000 (0.0-0.012) K/mm3 Nucleated RBC % 0.0 (0.0-0.2) % Sodium 140 (137-145) mmol/L Potassium 3.8 (3.4-5.0) mmol/L Chloride 102 (98-107) mmol/L Carbon Dioxide 26 (22-30) mmol/L Anion Gap 12 (4-12) mmol/L BUN 12 (7-17) mg/dL Creatinine 0.77 (0.7-1.0) mg/dL Estim Creat Clear Calc 93 ml/min Estimated GFR > 60 (59 - ) Glucose 97 (65-110) mg/dL Calcium 9.3 (8.4-10.2) mg/dL Discharge Plan Discharge Clinical Impression: Laceration, Injury of tendon of foot Patient Disposition: Acute Care Hospital Condition: Stable Patient Language: Burmese Prescriptions: No Action No Home Medications Follow-up/Referrals: Sri,Bhupendra Byers MD [Primary Care Provider] -
[2024-11-10 23:59] LABS: Basophils Absolute Auto 0.1 K/mm3 (0.0-0.1); Basophils Percent Auto 0.7 % (0.2-1.2); Eosinophils Absolute Auto 0.1 K/mm3 (0-0.3); Eosinophils Percent Auto 0.5 % (0-4.4); Hematocrit 43.6 % (37.0-47.0); Immature Granulocyte Absolute 0.21 K/mm3 (0.00-0.031); Immature Granulocyte Percent A 1.4 % (0-0.5); Lymphocytes Absolute Auto 1.35 K/mm3 (0.9-3.2); Lymphocytes Percent Auto 9.2 % (18.3-44.2); Mean Corpuscular HGB Conc 32.1 g/dl (32-36); Mean Corpuscular Hemoglobin 31.2 pg (26-34); Mean Corpuscular Volume 97.1 fl (80-100); Mean Platelet Volume 9.9 fl (7.4-10.4); Monocytes Absolute Auto 1.2 K/mm3 (0.1-0.6); Neutrophils Absolute Auto 11.8 K/mm3 (1.3-6.7); Neutrophils Percent Auto 80.2 % (45.5-73.1); Platelet Count Result 354 k/mm3 (150-375); Red Blood Count 4.49 M/mm3 (4.2-5.4); White Blood Count 14.7 K/mm3 (4.5-10.0)
[2024-11-11] MEDS: ceFAZolin 2 GM/D5W 50 ML 2 GM/50 ML BAG IVPB (00:59)
[2024-11-11 01:28] VITALS: BP 116/67; PULSE 93; RESP 15; O2SAT 100
[2024-11-11] MEDS: CEFEPIME 2 GM/NS 50 ML 2 GM/50 ML BAG IVPB (03:08)
[2024-11-11 03:15] VITALS: BP 115/75; PULSE 75; RESP 15; O2SAT 98
[2024-11-11] MEDS: metroNIDAZOLE 500 MG/ISO 100ML 500 MG/100 ML BAG 100 MG IVPB (03:57)
[2024-11-11 04:40] VITALS: BP 128/88; PULSE 78; RESP 19; O2SAT 99
== END 2024-11-11 05:34 | disposition short-term general hospital (02) ==
PROVIDERS: Emergency Provider Physician Assistant; PCP Family Medicine
DX: S96.921A Laceration of unspecified muscle and tendon at ankle and foot level, right foot, initial encounter (principal); W20.8XXA Other cause of strike by thrown, projected or falling object, initial encounter
CPT/HCPCS: 36415; 73610; 80048; 85025; 96365; 96366; 96368; 96375; 99285; J0690; J0692; J1836; J2270